=== PATIENT | male | born 1980 | race African-American/Black ===

== ENCOUNTER 2017-08-20 18:03 | Emergency (ER) | payer OTHER | END 2017-08-20 19:41 | disposition home or self-care (01) | LOC: ER 18:03 | DX: S69.91XA Unspecified injury of right wrist, hand and finger(s), initial encounter (principal); S69.92XA Unspecified injury of left wrist, hand and finger(s), initial encounter; V89.2XXA Person injured in unspecified motor-vehicle accident, traffic, initial encounter; Y93.89 Activity, other specified; Y92.410 Unspecified street and highway as the place of occurrence of the external cause; Y99.8 Other external cause status | CPT/HCPCS: 29125; 73110; 99284 ==